=== PATIENT | female | born 1995 | race Caucasian/White ===

== ENCOUNTER → 2024-12-30 | Outpatient (CLI) | payer OTHER, SELFPAY ==
[2024-12-30 19:27] LABS: PTHIN 39 pg/mL (11-61)
[2024-12-30 21:44] LABS: Ferritin 66 ng/mL (22-378); Vitamin B12 647 pg/mL (180-914); Vitamin D,25 Hydroxy 44.3 ng/mL (30-100)
[2025-01-04 21:07] LABS: Zinc, Plasma or Serum 68 ug/dL (44-115)
== END | disposition home or self-care (01) ==
LOC: MTLAB 14:59
PROVIDERS: PCP Family Medicine; Referring Provider Physician Assistant; Visit Provider Physician Assistant
DX: L64.8 Other androgenic alopecia (principal)
CPT/HCPCS: 36415; 82306; 82607; 82728; 83970; 84630; 86376